=== PATIENT | female | born 1950 ===

== ENCOUNTER 2024-06-15 02:23 | Outpatient (CLI) | payer MEDICARE, SELFPAY ==
[2024-06-15] MEDS: Gadoterate meglumine 20 ML VIAL 14 ML IVP (15:24)
[2024-06-15] MEDS: Normal Saline Flush 10 ML SYR IVP (15:25)
--- NOTE | 2024-06-15 15:45 | DI.MRI_ITS ---
Exam(s) MR BRAIN WO/W EXAM: MR BRAIN WO/W CLINICAL HISTORY: Cerebral meningioma, D32.0, planum meningioma, stereotactic planning, TECHNIQUE: Multiplanar multisequence MRI of the brain was performed. CONTRAST MATERIAL: IV Contrast: 14 mL of Dotarem contrast administered. COMPARISON: MR MRI BRAIN WWO from 10/20/2019 MR HEAD ADULT from 12/06/2020 MR MRI BRAIN WWO CONTRAST (GENERIC) from 01/21/2024 FINDINGS: VENTRICLES AND EXTRA AXIAL SPACES: Normal in size and morphology for the patient's age. There is agai n seen a homogeneously enhancing mass along the planum sphenoidale consistent with the patient's know n meningioma. It is unchanged in size. In the sagittal plane, it measures 2.0 x 0.9 cm. This rhianna res to 2.1 x 1.0 cm on the prior examination. (Series [id number], image 12). HEMORRHAGE: None. CEREBRAL PARENCHYMA: No focus of restricted diffusion to suggest acute infarct. No space-occupying le chelsey identified. There are few scattered hyperintense foci in the white matter most consistent with c hronic microvascular ischemic disease. MIDLINE SHIFT: None. BRAINSTEM/CEREBELLUM: Normal. CALVARIUM: Normal. ENHANCEMENT: See above under extra-axial spaces. VISUALIZED PARANASAL SINUSES/MASTOIDS: Clear. CHITIMACHA OF [place]: Normal flow void. PITUITARY GLAND: Please see above under extra-axial spaces. OTHER FINDINGS: IMPRESSION: There has been no change in size of the homogeneously enhancing mass along the planum sphenoidale. T his is consistent with the patient's known meningioma. DATA REPOSITORY:
== END 2024-06-15 02:43 ==
PROVIDERS: Visit Provider Radiology Radiation Oncology
DX: D32.0 Benign neoplasm of cerebral meninges (principal)
CPT/HCPCS: 70553

== ENCOUNTER 2024-06-22 10:57 | Outpatient (CLI) | payer MEDICARE, SELFPAY ==
[2024-06-22 11:05] LABS: CREATININE 1.1 mg/dL (0.55-1.02)
== END 2024-06-22 10:58 | disposition home or self-care (01) ==
LOC: LBO 10:58
PROVIDERS: Visit Provider Radiology Radiation Oncology
DX: D32.0 Benign neoplasm of cerebral meninges (principal)
CPT/HCPCS: 36415; 82565